=== PATIENT | male | born 1995 | race Hispanic/Latino ===

== ENCOUNTER 2023-06-19 10:31 | Emergency (ER) | payer MEDICAID, OTHER ==
[~2023-06-19] VITALS: Ht 182.9 cm; Wt 110.2 kg
[2023-06-19 11:22] LABS: RAPID GROUP A STREP negative (NEGATIVE)
[2023-06-19 11:24] LABS: SARS-CoV-2, RNA, NAAT NEGATIVE SARS CoV-2 (NEGATIVE)
[2023-06-19 11:31] LABS: INFLUENZA TYPE A Negative For Type A (NEGATIVE)
[2023-06-19 11:49] LABS: INFLUENZA TYPE B Positive For Type B (NEGATIVE)
[2023-06-19] MEDS ORDERED: DEXAMETHASONE SOD PHOSPHATE 4 MG/ML 1ML VIAL IM ONE (12:00)
[2023-06-19] MEDS ORDERED: BENZ-39 PO (12:21)
[2023-06-19] MEDS ORDERED: METH4TAB3 PO (12:21)
[2023-06-19] MEDS ORDERED: OSEL75 PO (12:21)
[2023-06-19 13:23] VITALS: BP 144/79; PULSE 99; RESP 16; O2SAT 100
== END 2023-06-19 13:23 | disposition home or self-care (01) ==
LOC: EDH 10:31
DX: J10.1 Influenza due to other identified influenza virus with other respiratory manifestations (principal); R05.9 Cough, unspecified; M94.0 Chondrocostal junction syndrome [Tietze]; Z20.822 Contact with and (suspected) exposure to COVID-19
CPT/HCPCS: 99283; 87635; 87880; 87804 ×2; 96372; J1100; C9803